=== PATIENT | female | born 1945 | race Caucasian/White ===

== ENCOUNTER 2024-10-12 09:43 | Observation (INO) | payer MEDICARE ==
[~2024-10-12] VITALS: Ht 154.9 cm; Wt 64.0 kg
[2024-10-12] VITALS (28 sets, daily range): BP systolic 118–191; BP diastolic 39–160
--- NOTE | 2024-10-12 09:45 | NUR ---
TO ROOM VIA EMS, DR CRUMP AT BEDSIDE.
[2024-10-12] MEDS ORDERED: Iopamidol 370 (Isovue) 76% 100 ML SDV IV ONE ×4 (09:55→13:05)
[2024-10-12 10:21] LABS: BASO% 0.6 % (0-3); EOS% 3.6 % (0-8); HEMATOCRIT 39.3 % (37.0-47.0); HEMOGLOBIN 12.2 g/dl (12.0-16.0); LYMPH% 29.6 % (15-41); MEAN CELL VOLUME 95.2 fL CALC (80.0-100.0); MEAN CORPUSCULAR HGB 29.5 pG CALC (26.0-32.0); MONO% 7.8 % (2-13); NEUT# 2.79 thou/uL (2.00-7.15); NEUT% 58.4 % (42-76); RED BLOOD COUNT 4.13 mill/uL (4.20-5.60); RED CELL DISTRI WIDTH 13.7 % (11.5-15.5)
[2024-10-12 10:39] LABS: ALBUMIN 3.9 g/dL (3.2-5.0); ALKALINE PHOSPHATASE 65 u/l (38-126); ANION GAP 12 (6-22 (CALC)); BILIRUBIN, TOTAL 0.6 mg/dL (0.02-1.3); BUN 22 mg/dL (8-23); BUN/CREATININE RATIO 46 (12-20 (CALC)); CALCULATED LDLCHOLESTEROL 52 mg/dL (62-129 (CALC)); CARBON DIOXIDE 27 mmol/l (22-30); CHLORIDE 105 mmol/l (95-108); CHOLESTEROL HDL RATIO 2.1 (<4.4 (CALC)); CREATININE 0.5 mg/dL (0.5-1.0); ESTIMATED GFR 95 ML/MIN (>=90 (CALC)); HDL CHOLESTEROL 57 mg/dL (39.0-59.0); POTASSIUM 4.2 mmol/l (3.5-5.1); PROTHROMBIN TIME 11.1 SECONDS (9.0-12.5); SGOT/AST 26 u/l (9-36); SODIUM 140 mmol/l (137-146); TOTAL CHOLESTEROL 122 mg/dl (0-199); TOTAL PROTEIN 6.9 g/dL (6.3-8.2); TOTAL TRIGLYCERIDES 64 mg/dl (0-149); VLDL CHOLESTROL 13 mg/dl (0-48 (CALC))
--- NOTE | 2024-10-12 10:45 | NUR ---
Reassessment of patient completed. No distress noted. VISITORS AT BEDSIDE
--- NOTE | 2024-10-12 11:46 | NUR ---
Reassessment of patient completed. No distress noted.
--- NOTE | 2024-10-12 11:51 | NUR ---
MD AT BEDSIDE TO DISCUSS RESULTS AND POC
--- NOTE | 2024-10-12 12:00 | NUR ---
INCREASED DYSPHAGIA AND RIGHT SIDED WEAKNESS NOTED. DR CRUMP AT BEDSIDE. STROKE ALERT CALLED.
[2024-10-12 12:33] LABS: URINE BILIRUBIN - DIPSTICK Negative (NEGATIVE); URINE BLOOD DIPSTICK Negative (NEGATIVE); URINE COLOR Yellow; URINE GLUCOSE - DIPSTICK Negative (NEGATIVE); URINE KETONE Negative (NEGATIVE); URINE LEUK ESTERASE Negative (NEGATIVE); URINE NITRITE - DIPSTICK Negative (Negative); URINE PROTEIN - DIPSTICK Negative (NEG-TRACE); URINE UROBILINOGEN - DIPSTICK 0.2 E.U./dL (0.2)
--- NOTE | 2024-10-12 12:55 | NUR ---
DR CRUMP AT BEDSIDE FOR CENTRAL LINE INSERTION
--- NOTE | 2024-10-12 14:37 | NUR ---
Reassessment of patient completed. No distress noted.
[2024-10-12] MEDS ORDERED: ELIQUIS5 MG PO (15:12)
[2024-10-12] MEDS ORDERED: NEURONTIN100 MG PO (15:12)
[2024-10-12] MEDS ORDERED: DOXAZOSIN8 MG PO (15:13)
[2024-10-12] MEDS ORDERED: OXYBUTYNIN CHLOR5 M2 PO (15:14)
[2024-10-12] MEDS ORDERED: LOTENSIN10 MG PO (15:14)
[2024-10-12] MEDS ORDERED: ESCITALOPRAM OXA5 MG PO (15:14)
[2024-10-12] MEDS ORDERED: ATORVASTATIN CA40 MG PO (15:15)
--- NOTE | 2024-10-12 16:45 | NUR ---
Reassessment of patient completed. No distress noted. VISITOR AT BEDSIDE
[2024-10-12] MEDS ORDERED: DEXTROSE 250 ML IV PRN (17:20)
--- NOTE | 2024-10-12 18:12 | NUR ---
REPORT CALLED TO MAMTA
--- NOTE | 2024-10-12 18:27 | NUR ---
PATIENT ARRIVED TO UNIT VIA STRETCHER ACCOMPAINED BY ER NURSE, ISSA. BEDSIDE REPORT RECEIVED. PATIENT ALERT AND ORIENTED X 3. C/O PAIN DURING BP CHECK, RELIEVED WHEN COMPLETED. PATIENT STATES SHE WAS HERE TO VISIT DAUGHTER ON [place] UNIT, BUT HAD ISSUES SPEAKING AND INCREASED R SIDED WEAKNESS. ARRIVED TO [facility] VIA EMS. R SIDED WEAKNESS NOTED, BUT PATIENT STATES THAT IS HER NORM. PATIENT SCHEDULED TO FLY BACK TO [place] TOMORROW, HOWEVER UNDERSTANDS THAT SHE WILL BE IN ICU OVERNIGHT. BEDSIDE SWWALLOW EVAL COMPLETED BY THIS SOFTWARE QA SYSTEM SPECIALIST AND AMINATA DU. NO ISSUES NOTED. PATIENT ORIENTED TO ROOM AND CALL GARCIA SYSTEM. DINNER PROVIDED. SAFETY MEASURES IN PLACE INCLUDING BED IN LOW POSITION AND CALL LIGHT RESTING NEXT TO L HAND. NO APPARENT DISTRESS NOTED. WILL CONTINUE WITH PLAN OF CARE.
--- NOTE | 2024-10-12 18:34 | NUR ---
TO ICU 1 VIA MAMTA COOPER RN AND ANA LAURA COATES AT BEDSIDE
--- NOTE | 2024-10-12 20:38 | NUR ---
PATIENT AWAKE, ALERT AND ORIENTED X3. VITALS WITHIN NORMAL LIMITS. ADMISSION HISTORY AND ASSESSMENT COMPLETE. PATIENT DENIES PAIN AT THIS TIME. NO DISTRESS NOTED. CALL LIGHT WITHIN REACH. BED IN LOW POSITION AND LOCKED; ALARM ACTIVATED.
[2024-10-12] MEDS ORDERED: GABAPENTIN 100 MG/CAP PO SCH (21:00)
[2024-10-12] MEDS ORDERED: APIXABAN BASE 5 MG TAB PO SCH (21:00)
--- NOTE | 2024-10-12 21:55 | NUR ---
PATIENT RESTING QUIETLY IN BED. EVENING MEDS ADMINISTERED, TOLERATED WELL. NIH COMPLETE, NO CHANGE COMPARED TO PRIOR ASSESSMENT. NO C/O PAIN AT THIS TIME. NO DISTRESS NOTED. CALL LIGHT WITHIN REACH, INSTRUCTED TO CALL FOR ASSISTANCE.
[2024-10-13] VITALS (43 sets, daily range): BP systolic 108–160; BP diastolic 52–123
--- NOTE | 2024-10-13 00:15 | NUR ---
RESTING QUIETLY, EYES CLOSED. EASY TO WAKE. ASSESSMENT COMPLETE. PATIENT STABLE, CALL LIGHT WITHIN REACH.
--- NOTE | 2024-10-13 04:09 | NUR ---
PATIENT AWAKE IN BED. ALERT AND ORIENTED X3. NO DISTRESS NOTED, DENIES PAIN. ASSESSMENT COMPLETE, NO CHANGES.
--- NOTE | 2024-10-13 08:00 | NUR ---
Patient lying in bed watching televison and eating breakfast.
[2024-10-13] MEDS ORDERED: ESCITALOPRAM 10 MG/TAB PO SCH (09:00)
[2024-10-13] MEDS ORDERED: PANTOPRAZOLE SODIUM Sesquihydr 40 MG/TAB PO SCH (09:00)
--- NOTE | 2024-10-13 10:00 | NUR ---
Patient with RN in MRI.
--- NOTE | 2024-10-13 13:00 | NUR ---
Patient lying in bed with eyes closed resting comfortably.
--- NOTE | 2024-10-13 15:00 | NUR ---
Patient lying in bed with eyes closed.
--- NOTE | 2024-10-13 18:58 | NUR ---
REPORT RECEIVED FROM All MEJIA RN.
--- NOTE | 2024-10-13 19:20 | NUR ---
PATIENT UP TO BSC COMMODE AT THIS TIME. PATIENT ABLE TO STAND WITH STANDY ASSITANCE. 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 PATIENT UNABLE TO EXTEND ELBOW OR FACE PALM UP. PATIENT CHANGED INTO A NEW GOWN. BED SHEETS CHANGED CENTRAL LINES FLUSHED. 3 LUMENS WITH POSITIVE BLOOD RETURN; FLUSHED AND PATENT. LARGE BM AT THIS TIME. PATIENT ASSITED BACK TO BED AND ASSITED INTO A COMFORTABLE POSITION. PATIENT CALL LIGHT NEXT TO (L) HAND.
--- NOTE | 2024-10-13 20:00 | NUR ---
DURING CHART REVIEW, WRITTER NOTED NEURO ROUNDING WAS NOT COMPLETED THIS AM, PATIENT WAS IN MRI AT THE TIME. ROUDING TO RESUME TOMORROW, LONG THERE IS NOT CHANGED IN PATIENT STATUS. PATIENT RESTING IN BED, VSS, NAD.
[2024-10-13] MEDS ORDERED: ATORVASTATIN CALCIUM 40 MG/TAB PO SCH (21:00)
--- NOTE | 2024-10-13 22:00 | NUR ---
PATIENT SLEEPING IN BED, NAD NOTED RESPIRATIONS EVEN AND UNLABORED. RISE AND FALL OF CHEST NOTED. CALL LIGHT WITHIN REACH.
[2024-10-13] MEDS ORDERED: ACETAMINOPHEN 325 MG/TAB PO PRN (22:20)
[2024-10-14] VITALS (25 sets, daily range): BP systolic 91–154; BP diastolic 52–80
--- NOTE | 2024-10-14 | NUR ---
PATIENT MEDICATED WITH TYLENOL. COMPLAINTS OF MILD PAIN TO (L) ARM AND HIP. NIH COMPLETED WITH PATIENT. PATIENT REMAINS AT SHIFT BASELINE. REFERENCE NIH FOR BREAKDOWN. PATIENT ASSITED INTO COMFORTABLE POSITION AND LIGHTS TURNED OFF FOR PATIENT COMFORT. CALL LIGHT BEDSIDE (L) HAND.
--- NOTE | 2024-10-14 02:00 | NUR ---
PATIENT SLEEPING. NO APPARENT DISTRESS NOTED. RISE AND FALL OF CHEST NOTED. RESPIRATIONS EVEN AND UNLABORED. VSS. CALL LIGHT REMAINS NEXT TO (L) HAND.
--- NOTE | 2024-10-14 04:00 | NUR ---
PATIENT RESTING IN BED, DENIES ANY CURRENT NEEDS. REPORTS TYLENOL HELPED EASE HER PAIN. PATIENT REMAINS NIH OF 3. CALL LIGHT WITHIN PATIENT REACH. NAD, VSS
--- NOTE | 2024-10-14 05:08 | NUR ---
MORNING LABS OBTAINED AT THIS TIME VIA CENTRAL LINE. PT TOLERATED WELL.
[2024-10-14 05:42] LABS: HEMATOCRIT 37.8 % (37.0-47.0); HEMOGLOBIN 12.3 g/dl (12.0-16.0); MEAN CELL VOLUME 91.7 fL CALC (80.0-100.0); MEAN CORPUSCULAR HGB 29.9 pG CALC (26.0-32.0); MEAN CORPUSCULAR HGB CONC 32.5 g/dL CAL (32.0-36.0); RED BLOOD COUNT 4.12 mill/uL (4.20-5.60); RED CELL DISTRI WIDTH 13.6 % (11.5-15.5)
[2024-10-14 05:49] LABS: ALBUMIN 3.3 g/dL (3.2-5.0); BILIRUBIN, TOTAL 0.5 mg/dL (0.02-1.3); CREATININE 0.6 mg/dL (0.5-1.0); TOTAL PROTEIN 5.9 g/dL (6.3-8.2)
--- NOTE | 2024-10-14 06:01 | NUR ---
PATIENT RESTING IN BED, PROVIDED WITH MOUTH HYGINE SUPPLIES AND NEW RENLADO HOSES/SOCKS.
--- NOTE | 2024-10-14 06:43 | NUR ---
REPORT GIVEN TO Red GREER RN
--- NOTE | 2024-10-14 07:45 | NUR ---
REPORT RECEIVED FROM NIGHT NURSE. 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 PT HAS NIH SCORE OF 5. DEFICITS PRESENT INCLUDE DISPHAGIA, SENSORY LOSS, AND SLIGHT DRIFT ON RIGHT SIDE. PT STATES SHE FEELS HER SYMPTOMS HAVE IMPROVED. PT IS A/O. LUNGS CLEAR; ON RA; NO COUGH OR SOB NOTED. HEART SOUNDS S1S2; PT IS SINUS WILLIS/SINUS RHYTHM ON MONITOR. BS ACTIVE. ABDOMEN SOFT/NON-TENDER. NIGHT NURSE REPORTS BM LAST NIGHT. PT HAS PURWIK IN PLACE TO VOID. PULSES STRONG UPPER, WEAK LOWER EXTREMETIES. SLIGHT BRUISING ON LEFT ARM. SKIN W/D/I. AFEBRILE. PT DENIES ANY PAIN OR DISCOMFORT. REPOSITIONED IN BED TO EAT BREAKFAST. BREAKFAST TRAY AT BEDSIDE. VISITOR AT BEDSIDE. CALL LIGHT IN REACH. PT DENIES ANY NEEDS AT THIS TIME. VSS.
--- NOTE | 2024-10-14 08:20 | NUR ---
DR. MAGANA AT BEDSIDE TO SPEAK WITH PATIENT AND FAMILY.
--- NOTE | 2024-10-14 08:36 | NUR ---
PT AT BEDSIDE TO WORK WITH PT.
[2024-10-14] MEDS ORDERED: INFLUENZA VIRUS VACCINE FLUZONE HD 2024/25 0.5 ML INJ IM SCH (09:00)
--- NOTE | 2024-10-14 09:16 | NUR ---
PT AMBULATED WITH PT USING WALKER AND DID VERY WELL, ASSISTED TO CHAIR. TELE-NEUROLOGY VISIT COMPLETED. PT GIVEN CLEARANCE FROM NEUROLOGY TO FLY HOME TO [place] AFTER BEING DISCHARGED FROM REHAB. AFTER TELE-VISIT PT ASSISTED TO WALK TO RESTROOM TO VOID USING WALKER. PT BACK TO CHAIR. ALL BELONGINGS AND CALL LIGHT IN REACH.
--- NOTE | 2024-10-14 10:40 | NUR ---
OT AT BEDSIDE WORKING WITH PT.
--- NOTE | 2024-10-14 12:30 | NUR ---
NO CHANGES TO PT STATUS. PT ATE LUNCH IN CHAIR AND HAD VISITORS AT BEDSIDE. CALL LIGHT IN REACH. VSS.
--- NOTE | 2024-10-14 14:45 | NUR ---
PT ARRIVED TO UNIT VIA STAFF WHEELCHAIR TRANSPORT.
--- NOTE | 2024-10-14 14:46 | NUR ---
PT IS AOX3, WITH AN NIH=4 FOR DECREASED SENSATION TO THE RIGHT, APHAGIA, RIGHT ARM DRIFT AND ATAXIA. RESPIRATIONS ARE EVEN AND UNLABORED, LUNGS ARE CLEAR, BOWEL SOUNDS ARE ACTIVE, PEDAL PULSES ARE PALPABLE TO TOUCH. PT DENIES PAIN AT THIS TIME. EDUCATED PT ON ROOM, FALL PRECAUTIONS, CALLING FOR ASSISTANCE NEEDED.
--- NOTE | 2024-10-14 14:48 | NUR ---
PT BROUGHT TO MED-SURG UNIT BY WHEELCHAIR WITH ALL BELONGINGS. PT IS ON TELEMETRY. REPORT GIVEN TO AMINATA FITZGERALD. BEDSIDE NIH PERFORMED. ALL QUESTIONS ANSWERED. PT VISITOR AT BEDSIDE.
--- NOTE | 2024-10-14 20:15 | NUR ---
PT RESTING ON BED WITH EYES OPEN. ALERT AND ORIENTED X3. LUNGS CLEAR TO AUSCULATION. BREATHING EVEN AND UNLABORED. NO SIGNS OF DISTRESS. PT WITH RIGHT-SIDED WEAKNESS FROM OLD STROKE. ACTIVE BOWEL SOUNDS AND WEAK PALPABLE PULSES. TELE MONITOR IN PLACE SHOWING SR-65 AT THIS TIME. BRUISE NOTED ON LAC. CENTRAL LINE NOTED ON HER RIGHT IJ-TRIPLE LUMEN- ALL 3 PORT FLUSH WELL WITH GOOD BLOOD RETURN. STATED BM TODAY 10/14/24. TEDS AND SAFETY SOCKS ON. ENCOURAGE TO CALL FOR ASSISTANCE, BED IN LOWEST POSITION, CALL LIGHT IN REACH AND SAFETY PRECAUTIONS IN PLACE.
[2024-10-15] VITALS (11 sets, daily range): BP systolic 126–159; BP diastolic 59–71
--- NOTE | 2024-10-15 00:45 | NUR ---
PT RESTING ON BED IN SUPINE POSIITON. BREATHING EVEN AND UNLABORED. CALL LIGHT IN REACH AND SAFETY PRECAUTIONS IN PLACE.
--- NOTE | 2024-10-15 04:04 | NUR ---
PT IN SEMI HALEY'S POSITION. NO SIGNS OF DISTRESS. RESPS ARE EVEN AND UNLABORED. CALL LIGHT IN REACH AND SAFETY PRECAUTIONS ON PLACE
--- NOTE | 2024-10-15 05:10 | NUR ---
LAB WORK DONE FROM CENTRAL LINE RIJ-TRIPLE LUMEN- BLOOD DRAWN FROM BROWN PORT- ALL THREE PORTS WITH GOOD BLOOD RETURN AND FLUSH WELL.
[2024-10-15 05:26] LABS: BASO% 0.6 % (0-3); EOS% 4.8 % (0-8); HEMATOCRIT 36.8 % (37.0-47.0); HEMOGLOBIN 12.1 g/dl (12.0-16.0); LYMPH% 21.2 % (15-41); MEAN CELL VOLUME 91.8 fL CALC (80.0-100.0); MEAN CORPUSCULAR HGB 30.2 pG CALC (26.0-32.0); MEAN CORPUSCULAR HGB CONC 32.9 g/dL CAL (32.0-36.0); MONO% 9.4 % (2-13); NEUT# 3.33 thou/uL (2.00-7.15); RED BLOOD COUNT 4.01 mill/uL (4.20-5.60); RED CELL DISTRI WIDTH 13.6 % (11.5-15.5)
[2024-10-15 05:36] LABS: ALBUMIN 3.2 g/dL (3.2-5.0); BILIRUBIN, TOTAL 0.7 mg/dL (0.02-1.3); CREATININE 0.5 mg/dL (0.5-1.0); MAGNESIUM 1.9 mg/dL (1.6-2.3); TOTAL PROTEIN 5.9 g/dL (6.3-8.2)
--- NOTE | 2024-10-15 08:47 | NUR ---
PATIENT SITTING UP IN BED. ASSESSMENT COMPLETED. SISTER AT BEDSIDE. PATIENT ALERT AND ORIENTED X 3. NIH COMPLETED (SEE INTERVENTION). PATIENT DENIES PAIN AT THIS TIME. LUNGS CLEAR TO ASCULTATION. BREATHING EVEN AND UNLABORED ON ROOM AIR. SAFETY MEASURES IN PLACE INLCUDING BED IN LOW POSITION AND CALL LIGHT RESTING NEXT TO L HAND. NO APPARENT DISTRESS NOTED. WILL CONTINUE WITH PLAN OF CARE.
--- NOTE | 2024-10-15 11:50 | NUR ---
PATIENT SITTING UP IN CHAIR FOR LUNCH. IN GOOD SPIRITS BECAUSE SHE WAS ABLE TO VISIT WITH HER DAUGHTER DOWN THE [place]. DENIES CONCERNS AT THIS TIME. NO APPARENT DISTRESS NOTED. WILL CONTINUE WITH PLAN OF CARE.
--- NOTE | 2024-10-15 16:00 | NUR ---
PATIENT SITTING UP IN CHAIR. NO APPARNT DISTRESS. WILL CONTINUE WITH PLAN OF CARE.
--- NOTE | 2024-10-15 20:37 | NUR ---
PATIENT RESTING IN BED. ALERT AND ORIENTED. ABLE TO MAKE NEEDS KNOWN. ASSESSMENT COMPLETE. RIGHT SIDED DEFICITS. BRACE OBSERVED ON RIGHT HAND/WRIST. NO DISTRESS NOTED. COMPLAINTS OF LEFT HAND PAIN. PRN TYLENOL GIVEN PER ORDERS. TOLERATED WELL. DENIES NEEDING ANYTHING ELSE AT THIS TIME. BED IN LOW POSITION. CALL GARCIA IN REACH.
--- NOTE | 2024-10-15 23:58 | NUR ---
PATIENT REMAINS RESTING IN BED. NO DISTRESS NOTED. NO COMPLAINTS VOICED. BED REMAINS IN LOW POSITION. CALL GARCIA IN REACH.
[2024-10-16 00:13] VITALS: BP 133/68
--- NOTE | 2024-10-16 04:41 | NUR ---
PATIENT REMAINS RESTING IN BED. DENIES NEEDING ANYTHING AT THIS TIME. BED REMAINS IN LOW POSITION. CALL GARCIA IN REACH.
[2024-10-16 05:00] VITALS: BP 158/69
[2024-10-16 05:31] LABS: BASO% 0.7 % (0-3); HEMATOCRIT 37.1 % (37.0-47.0); HEMOGLOBIN 12.1 g/dl (12.0-16.0); IMMATURE GRANULOCYTES 0.2 % (0.0-5.0); LYMPH% 28.9 % (15-41); MEAN CELL VOLUME 90.7 fL CALC (80.0-100.0); MEAN CORPUSCULAR HGB 29.6 pG CALC (26.0-32.0); MEAN CORPUSCULAR HGB CONC 32.6 g/dL CAL (32.0-36.0); MONO% 12.5 % (2-13); NEUT# 2.41 thou/uL (2.00-7.15); NEUT% 52.7 % (42-76); RED BLOOD COUNT 4.09 mill/uL (4.20-5.60); RED CELL DISTRI WIDTH 13.5 % (11.5-15.5)
[2024-10-16 05:47] LABS: ALBUMIN 3.4 g/dL (3.2-5.0); BILIRUBIN, TOTAL 0.5 mg/dL (0.02-1.3); CREATININE 0.5 mg/dL (0.5-1.0); MAGNESIUM 1.9 mg/dL (1.6-2.3); POTASSIUM 4.1 mmol/l (3.5-5.1)
--- NOTE | 2024-10-16 07:43 | NUR ---
PATIENT SITTING UP ON THE SIDE OF THE BED. ASSESSMENT/NIH COMPLETE (SEE INTERVENTIONS). PATIENT ALERT AND ORIENTED X 4. DENIES PAIN AT THIS TIME. LUNGS CLEAR TO ASCULTATION. BREATHING EVEN AND UNLABORED ON ROOM AIR. DENIES CONCERNS AT THIS TIME, ALL NEEDS MET. SAFETY MEASURES IN PLACE INCLUDING BED IN LOW POSITION AND CALL LIGHT RESTING NEXT TO L HAND. PATIENT EAGER FOR DISCHARGE TO TAKE FLIGHT BACK HOME THIS EVENING. NO APPARENT DISTRESS NOTED. WILL CONTINUE WITH PLAN OF CARE.
[2024-10-16 07:45] VITALS: BP 148/70
[2024-10-16] MEDS ORDERED: OXYBUTYNIN 5 MG/TAB PO SCH (09:00)
[2024-10-16 12:00] VITALS: BP 157/78
--- NOTE | 2024-10-16 12:17 | NUR ---
PATIENT SITTING UP ON THE SIDE OF THE BED. FAMILY MEMBERS AT BEDSIDE. DENIES CONCERNS AT THIS TIME. NO APPARENT DISTRESS NOTED. WILL CONTINUE WITH PLAN OF CARE.
--- NOTE | 2024-10-16 13:51 | NUR ---
Discharge instructions given. Patient verbalizes understanding of same. Discharged in stable condition via Wheelchair to Home with relative. All belongings sent with pt.
--- NOTE | 2024-10-20 12:18 | NUR ---
Discharge follow up call completed 10/20/24. Daughter of patient states patient is doing well. She has returned to her regular medication regimen. She has an appointment with her supervisor sample and her PCP on Sunday of this week. Daughter was referred to Medical Records to obtain MRI images and report. No other needs or concerns verbalized at this time,
== END 2024-10-16 13:48 | disposition home or self-care (01) ==
LOC: ED 09:43 → ED-I 11:40 → ED 15:08 → ICU 15:09 → MS2 15:09 → ICU 15:09 → MS2 10-14 14:35
PROVIDERS: Family Medicine; Student in an Organized Health Care Education/Training Program; ADMIT Internal Medicine; ATTEND Internal Medicine
PROC: 05HM33Z Insertion of Infusion Device into Right Internal Jugular Vein, Percutaneous Approach (ICD-10-PCS; 2024-10-12)
PROC: 3E02340 Introduction of Influenza Vaccine into Muscle, Percutaneous Approach (ICD-10-PCS; principal; 2024-10-14)
DX: I63.512 Cerebral infarction due to unspecified occlusion or stenosis of left middle cerebral artery (principal); R47.01 Aphasia; G81.91 Hemiplegia, unspecified affecting right dominant side; R29.705 NIHSS score 5; I10 Essential (primary) hypertension; I48.0 Paroxysmal atrial fibrillation; I08.3 Combined rheumatic disorders of mitral, aortic and tricuspid valves; I69.351 Hemiplegia and hemiparesis following cerebral infarction affecting right dominant side; E78.5 Hyperlipidemia, unspecified; Z79.01 Long term (current) use of anticoagulants; Z23 Encounter for immunization
CPT/HCPCS: 90662; Q9967